=== PATIENT | female | born 1955 | race Caucasian/White ===

== ENCOUNTER 2025-01-05 18:33 | Emergency (ER) | payer MEDICARE, SELFPAY ==
--- NOTE | 2025-01-05 18:37 | DI.US.S_ITS ---
PROCEDURE: US PERIPH VENOUS LOW EXTREM RT INDICATIONS: PAIN AND SWELLING. H/O POSTPOLIO ATROPHY. RECENT TRAVEL. TECHNIQUE: Real-time imaging, as well as color and pulse Doppler interrogation, were performed of the lower extremity deep veins from the inguinal ligament to the popliteal fossa, with documentation of the visualized calf veins. COMPARISON: None. FINDINGS: The common femoral, femoral, popliteal, and the visualized calf veins are normally compressible, and free of intraluminal thrombus. Color and pulse Doppler demonstrate normal phasic intraluminal flow. There is normal augmentation response to distal compression maneuver. IMPRESSION: No findings of DVT in visualized right lower extremity veins. Dictated by: Seng Walker M.D. on 01/05/2025 at 20:25 Approved by: Seng Walker M.D. on 01/05/2025 at 20:26
[2025-01-05 19:00] VITALS: BP 184/82; PULSE 78; RESP 17; TEMP 36.6; O2SAT 98; BMI 26.6
--- NOTE | 2025-01-05 19:48 | ED_ITS ---
HPI - Extremity Problem General Chief complaint: Extremity Problem,Nontraumatic Stated complaint: rt leg px and swelling Time Seen by Provider: 01/05/25 18:37 Source: patient Mode of arrival: Wheelchair History of Present Illness HPI Narrative: 69-year-old female with nontraumatic right leg pain and swelling. No blood thinner medications. History of childhood onset polio, with subsequent right leg weakness and atrophy, status post numerous prior surgical procedures, wearing a brace for ambulation right leg, most recently transitioning to wheelchair ambulation, visiting from [facility], recent long air and ground travel. No chest pain or shortness of breath. She has been sitting, some risk of lymphedema. No fevers or chills. Related Data Home Medications Medication Instructions Recorded Confirmed amlodipine 5 mg tablet 5 mg PO DAILY 01/05/25 01/05/25 duloxetine 30 mg capsule,delayed 30 mg PO DAILY 01/05/25 01/05/25 release levothyroxine 100 mcg tablet 100 mcg PO DAILY 01/05/25 01/05/25 Allergies Allergy/AdvReac Type Severity Reaction Status Date / Time No Known Drug Allergies Allergy Verified 01/05/25 19:02 Patient History Social History Smoking Status: Never smoker Smoking Status: Never smoker Exam Narrative Exam Narrative: GENERAL: Well-developed patient, in mild distress. HEAD: Atraumatic. Normocephalic. EYES: Conjugate gaze, white sclerae. ENT: Nose without bleeding or swelling. Throat without erythema, tonsillar hypertrophy or exudate. Airway patent. Normal phonation. NECK: Trachea midline. Moves neck well without difficulties. CARDIOVASCULAR: Regular rate and rhythm without murmurs, gallops, or rubs. RESPIRATORY: Clear to auscultation. Breath sounds equal bilaterally. No wheezes, rales, or rhonchi. GASTROINTESTINAL: Abdomen soft, non-tender, nondistended. EXTREMITIES: Examination in her right leg brace per patient preference, having reapplied the brace after ultrasound study. 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 No flank tenderness. NEURO: AOx3. Motor functions grossly nonfocal, safe for limited right leg movement due to post-polio atrophy/bracing. SKIN: No rash or erythema of visible areas Initial Vital Signs Initial Vital Signs: Vital Signs Temperature 98 F 01/05/25 19:00 Pulse Rate 78 01/05/25 19:00 Respiratory Rate 17 01/05/25 19:00 Blood Pressure 184/82 H 01/05/25 19:00 Pulse Oximetry 98 01/05/25 19:00 Oxygen Delivery Method Room Air 01/05/25 19:00 Course Orders Ordered: ED Orders 01/05/25 18:37 US perip venous low extrem rt Stat Vital Signs Vital signs: Vital Signs - 8 hr 01/05/25 19:00 01/05/25 20:00 Temperature 98 F 97.5 F L Pulse Rate 78 72 Respiratory Rate 17 16 Blood Pressure 184/82 H 177/91 H Pulse Oximetry 98 99 Oxygen Delivery Method Room Air Room Air MDM - Extremity (Nontraumatic) Imaging Data Right lower extremity venous Doppler: Radiologist's Impression: [address] [address] Ultrasound Report Signed Patient: Haydee Gold MR#: [id number] : 1955 Acct:[id number] Age/Sex: 69 / F Date of Service: 01/05/25 Loc: ED Accession Number: [id number] Procedure: US perip venous low extrem rt Ordering Provider: Gómez Humphries MD PROCEDURE: PERIP VENOUS LOW EXTREM RT INDICATIONS: PAIN AND SWELLING. H/O POSTPOLIO ATROPHY. RECENT TRAVEL. TECHNIQUE: Real-time imaging, as well as color and pulse Doppler interrogation, were performed of the lower extremity deep veins from the inguinal ligament to the popliteal fossa, with documentation of the visualized calf veins. COMPARISON: None. FINDINGS: The common femoral, femoral, popliteal, and the visualized calf veins are normally compressible, and free of intraluminal thrombus. Color and pulse Doppler demonstrate normal phasic intraluminal flow. There is normal augmentation response to distal compression maneuver. IMPRESSION: No findings of DVT in visualized right lower extremity veins. Dictated by: Seng Walker M.D. on 01/05/2025 at 20:25 Approved by: Seng Walker M.D. on 01/05/2025 at 20:26 [facility] Narrative Medical decision making narrative: 69-year-old female with history of post-polio right leg atrophy, using supportive brace, recent travel from [place], right calf nontraumatic subjective swelling and increased pain, concern for DVT. Afebrile, sirs screen negative. No redness/warmth suggestive of cellulitis. No palpable cord. Ultrasound venous Doppler right lower extremity ordered. Ultrasound showed no evidence for DVT, per [employer] verbal report. This verbal report was relayed to patient. Expedited discharge to [facility] back to [facility], official radiology report still pending at the time of discharge. Plan to contact them if official radiology report is different than sono tech preliminary report. Advised elevation of the right lower extremity to help reduce swelling. Return precautions discussed. Discharged home with family. (late entry, ultrasound right lower extremity peripheral venous Doppler ultrasound. No findings of DVT. See Radiology report) Discharge Plan Departure Patient Disposition: Home Clinical Impression: Pain and swelling of right lower leg Activity Restrictions/Additional Instructions: Ms Gold. History of post-polio related weakness and atrophy wearing brace, recent travel, increased pain and some swelling relative to baseline, no palpable cords suggestive of DVT on limited examination. Venous Doppler ultrasound study showed no evidence of deep clot in the venous system at this time. No fever on triage, seems less likely cellulitis, hold antibiotics for now. Try elevation of your right leg. Recheck if symptoms worsening next couple of days. Thank you for allowing our team to evaluate you today. Prescriptions: No Action amlodipine 5 mg tablet 5 mg PO DAILY levothyroxine 100 mcg tablet 100 mcg PO DAILY duloxetine 30 mg capsule,delayed release(DR/EC) 30 mg PO DAILY Referrals: Miscellaneous,Doctor, MD [Primary Care Provider] - Stand Alone Forms: Patient Portal/API/Survey
[2025-01-05 20:00] VITALS: BP 177/91; PULSE 72; RESP 16; TEMP 36.4; O2SAT 99
== END 2025-01-05 20:03 | disposition home or self-care (01) ==
PROVIDERS: Emergency Provider Emergency Medicine
DX: M79.661 Pain in right lower leg (principal); R22.41 Localized swelling, mass and lump, right lower limb
CPT/HCPCS: 93971; 99281; 99283